=== PATIENT | female | born 1980 | race Caucasian/White ===

== ENCOUNTER 2023-10-06 10:35 | Emergency (ER) | payer BC, SELFPAY ==
[2023-10-06 10:39] VITALS: BP 150/99; PULSE 68; TEMP 36.6; O2SAT 97; BMI 34.0
--- NOTE | 2023-10-06 10:51 | ECG_ITS ---
[facility] Test Date: 2023-10-06 Pat Name: Desiree Ernst Department: Room: - Gender: Female Jive Developer: : 1980 Requested By: Order Number: [id number] Reading MD: CATIE HOLDER Measurements Intervals [place] Rate: 75 P: 270 MA: 148 QRS: 77 QRSD: 92 T: 66 QT: 390 QTc: 419 Interpretive Statements 1220 Rapid atrial rhythm 9140 abnormal rhythm ECG No previous ECG available for comparison Electronically Signed On 10-06-2023 20:10:22 EDT by CATIE HOLDER
[2023-10-06] MEDS: 0.9 % SODIUM CHLORIDE 1,000 ML 1000 ML IV (11:04)
[2023-10-06] MEDS: ONDANSETRON PF 4 MG/2 ML VIAL IV (11:05)
[2023-10-06] MEDS: FAMOTIDINE/PF 20 MG/2 ML VIAL IV (11:05)
[2023-10-06 11:12] VITALS: O2SAT 97
[2023-10-06 11:15] LABS: Basophils Percent Auto 0.4 % (0.2-2.0); Eosinophils Absolute Auto 0.1 10^3/uL (0.0-0.7); Eosinophils Percent Auto 0.8 % (0.9-7.0); Hematocrit 41.6 % (36.0-48.0); Hemoglobin 13.9 g/dL (12.0-16.0); Immature Granulocytes Abs Auto 0.04 10^3/uL (0.00-0.03); Immature Granulocytes Pct Auto 0.5 % (0.0-0.5); Lymphocytes Absolute Auto 1.7 10^3/uL (1.2-3.8); Lymphocytes Percent Auto 22.7 % (20.5-60.0); Mean Corpuscular HGB Conc 33.4 g/dL (29.9-35.2); Mean Corpuscular Hemoglobin 27.5 pg (26.7-34.0); Mean Corpuscular Volume 82.4 fL (81.0-99.0); Mean Platelet Volume 9.3 fL (9.5-13.5); Monocytes Absolute Auto 0.3 10^3/uL (0.3-0.8); Monocytes Percent Auto 4.4 % (1.7-12.0); Neutrophils Absolute Auto 5.4 10^3/uL (1.4-6.5); Neutrophils Percent Auto 71.2 % (43.0-75.0); Platelet Count 222 10^3/uL (150-450); Red Blood Count 5.05 10^6/uL (4.20-5.40); White Blood Count 7.5 10^3/uL (4.0-11.0)
[2023-10-06 11:16] VITALS: BP 135/73; PULSE 78
[2023-10-06 11:17] VITALS: PULSE 78
[2023-10-06 11:30] VITALS: BP 133/70; PULSE 79; O2SAT 96
--- NOTE | 2023-10-06 11:40 | CT_ITS ---
[address] [address] Patient Name: CAILIN DONIS MRN: [id number] date: 1980 Sex: F Assigned Patient Location: ED.MAIN Current Patient Location: ED.MAIN Accession/Order Number: [id number] Exam Date: 10/06/2023 11:34 Report Date: 10/06/2023 12:57 At the request of: MELISSA ASCENCIO Procedure: CT abdomen pelvis wo con EXAMINATION: CT abdomen pelvis wo con HISTORY: kidney stone COMPARISON: No relevant comparison available. TECHNIQUE: Axial, Coronal, and Sagittal images were created without IV contrast. Dose reduction techniques were achieved by using automated exposure control and/or adjustment of mA and/or kV according to patient size and/or use of iterative reconstruction technique. FINDINGS: LUNG BASES: No visible pulmonary or pleural disease. LIVER: No enlargement, atrophy, abnormal density, or significant focal lesion. BILIARY: No dilatation or calcification. PANCREAS: No lesion, fluid collection, ductal dilatation, or atrophy. SPLEEN: No enlargement or focal lesion. ADRENALS: No mass or enlargement. KIDNEYS: Normal right. Asymmetrically enlarged left kidney. Left hydroureteronephrosis extending to a 5 mm stone proximal left ureter axial image #65 BOWEL/MESENTERY: No visible mass, obstruction, or bowel wall thickening. AORTA/VASCULAR: No aneurysm or dissection. RETROPERITONEUM: No mass or adenopathy. LYMPH NODES: No adenopathy. URINARY BLADDER: No visible focal wall thickening, lesion, or calculus. PELVIC ORGANS: No visible mass. Pelvic organs appropriate for patient age. ABDOMINAL WALL: No mass or hernia. BONES: No bony lesion or fracture. OTHER: Negative. CT/CT abdomen pelvis wo con IMPRESSION: 5 mm proximal left ureterolith with mild to moderate associated obstructive uropathy Electronically authenticated by: RUSSELL MARTÍNEZ Date: 10/06/2023 12:57
[2023-10-06 11:49] LABS: Alanine Aminotransferase 24 U/L (14-59); Albumin Globulin Ratio 1.2; Albumin Level 3.7 g/dL (3.4-5.0); Alkaline Phosphatase 77 U/L (46-116); Anion Gap 12.3; Aspartate Amino Transferase 14 U/L (15-37); BUN Creatinine Ratio 12.1; Bilirubin Total 0.6 mg/dL (0.2-1.0); Calcium 9.1 mg/dL (8.5-10.1); Carbon Dioxide 28.5 mmol/L (21.0-32.0); Chloride 101 mmol/L (98-107); Estimated GFR (African America >60 (>=60); Estimated GFR (Non-African Ame >60 (>=60); Globulin 3.1 g/dL; Glucose 126 mg/dL (74-106); Potassium 3.8 mmol/L (3.5-5.1); Sodium 138 mmol/L (136-145); Total Protein 6.8 g/dL (6.4-8.2); Troponin I High Sensitivity <4.0 pg/mL (4.0-51.3)
[2023-10-06 13:00] VITALS: BP 127/80; PULSE 97; O2SAT 99
[2023-10-06 13:30] LABS: Bilirubin Urine NEGATIVE (NEGATIVE); Blood Urine MODERATE (NEGATIVE); Clarity Urine CLEAR (CLEAR); Color Urine LT. YELLOW (YELLOW); Glucose Urine UA NEGATIVE (NEGATIVE); Ketones Urine NEGATIVE (NEGATIVE); Leukocyte Esterase Urine NEGATIVE (NEGATIVE); Nitrite Urine NEGATIVE (NEGATIVE); Protein Urine NEGATIVE (NEG/TRACE); Specific Gravity Urine 1.015 (1.005-1.025); Urobilinogen Urine 0.2 EU/dL (0.2-1.0)
[2023-10-06 13:35] LABS: Urine Microscopic Indicated YES
[2023-10-06 13:42] LABS: Bacteria Urine MODERATE #/HPF (NONE SEEN); Cast Seen? NONE SEEN #/LPF (NONE SEEN); Crystals Seen? None Seen #/HPF (None Seen); Mucus Urine SMALL (NONE SEEN); Squamous Epithelial Cell Urine MANY #/LPF (NONE/RARE); Transitional Epi Cells Urine RARE #/LPF (NONE SEEN); Urine Culture Indicated YES; WBC Urine 0-2 #/HPF (NONE SEEN)
--- NOTE | 2023-10-06 13:53 | ED.ABDPAIN1 ---
HPI - Abdominal Pain General Chief Complaint: Abdominal Pain Stated Complaint: KIDNEY STONE VOMITING Time Seen by Provider: 10/06/23 10:47 Source: patient Mode of arrival: walk-in Limitations: no limitations History of Present Illness HPI narrative: The patient is coming to the ER with nausea and vomiting for the last 24 hours, she was diagnosed with a kidney stone on the left side almost 5 days ago and another facility where she was admitted for 24 hours and then discharged According to the patient she did not have a clear plan from her kidney stone and that was one of the reason that brought her to the ER and that seems to the nausea and the vomiting There was no more flank pain, there is no burning with urination no fever no chills Related Data Home Medications ?Medication ?Instructions ?Recorded ?Confirmed alprazolam 0.5 mg tablet 0.5 mg PO BID PRN anxiety 10/06/23 10/06/23 buprenorphine 8 mg-naloxone 2 mg 2 film sublingual DAILY 10/06/23 10/06/23 sublingual film buspirone 10 mg tablet 10 mg PO TID 10/06/23 10/06/23 dextroamphetamine-amphetamine 30 30 mg PO BID 10/06/23 10/06/23 mg tablet levothyroxine 125 mcg tablet 125 mcg PO DAILY 10/06/23 10/06/23 pregabalin 75 mg capsule 75 mg PO Q12H 10/06/23 10/06/23 tamsulosin 0.4 mg capsule 0.4 mg PO BID 10/06/23 10/06/23 Previous Rx's ?Medication ?Instructions ?Recorded cephalexin 500 mg capsule 500 mg PO Q8H 7 days #21 caps 10/06/23 famotidine 20 mg tablet (Pepcid) 20 mg PO BID #20 tabs 10/06/23 ondansetron 4 mg disintegrating 4 mg PO Q8H PRN nausea and 10/06/23 tablet vomiting #10 tabs Allergies Allergy/AdvReac Type Severity Reaction Status Date / Time No Known Drug Allergies Allergy Verified 10/06/23 10:39 Review of Systems ROS Status of ROS 10 or more systems reviewed and unremarkable except as noted in history and below Exam Narrative Exam Narrative: Nurses notes and vital signs reviewed and patient is not hypoxic. General: Well-appearing and in no apparent distress. Skin: Warm, dry, no pallor noted. No rash. Head: Normocephalic, atraumatic. Neck: Supple, non-tender. Eye: Pupils are equal, round and EOMI. No scleral icterus. Ears, Nose, Mouth, and Throat: TM are clear, no nasal mucosal hypertrophy. Oral mucosa is moist, no posterior oropharynx erythema, uvula is mid-line Cardiovascular: Regular Rate and Rhythm without murmur, gallop or rub. Respiratory: No accessory muscle use or respiratory distress. Lungs are clear to auscultation, no wheezing, rales or rhonchi Chest Wall: no tenderness Back: No midline thoracic or lumbar vertebral tenderness. No CVA tenderness Musculoskeletal: normal ROM, no calf or popliteal tenderness, no lower extremity edema/swelling GI: Abdomen is soft, non-distended. Normal bowel sounds. No masses appreciated. Mild epigastric discomfort. no rebound, guarding, or rigidity noted. Neurological: A&O x4. No cranial nerve dysfunction observed. No truncal ataxia. Moves all extremities. Sensation intact. Psychiatric: Cooperative and interactive. Normal mood and affect. Constitutional Vital Signs, click to edit/add: Last Vital Signs Temp 97.9 F 10/06/23 10:39 Pulse 97 H 10/06/23 13:00 Resp 18 10/06/23 13:00 BP 127/80 10/06/23 13:00 Pulse Ox 99 10/06/23 13:00 Course Vital Signs Vital signs: Vital Signs Temperature 97.9 F 10/06/23 10:39 Pulse Rate 68 10/06/23 10:39 Respiratory Rate 20 10/06/23 10:39 Blood Pressure 150/99 H 10/06/23 10:39 Pulse Oximetry 97 10/06/23 10:39 Temperature 97.9 F 10/06/23 10:39 Pulse Rate 97 H 10/06/23 13:00 Respiratory Rate 18 10/06/23 13:00 Blood Pressure 127/80 10/06/23 13:00 Pulse Oximetry 99 10/06/23 13:00 MDM - Abdominal Pain MDM Narrative Medical decision making narrative: The patient presenting to us with a epigastric discomfort associate with nausea and vomiting showed he had a diagnosis of kidney stone 5 days And the workup from the other facility showed that she have a left-sided kidney stone on our repeated CAT scan today the patient still have a 5 mm kidney stone on the left side with some obstructive features] The patient CBC and chemistry showed no acute pathology but the urine is positive for bacteria and should be covered with Keflex Patient provided with Pepcid and Zofran in the ER for possible gastritis she also was started on Keflex and to continue hydration she was referred to the urologist on-call Dr. Hunt The patient was instructed about the symptoms that we will bring her back to the ER The patient is to follow up with primary care physician in next 2-3 days or to return to the emergency department should any of the signs or symptoms worsen or new symptoms develop. The patient agrees with the following Diagnosis and Treatment plan and the patient will be discharged home. Lab Data Labs: Lab Results 10/06/23 10/06/23 Range/Units 11:03 13:24 WBC 7.5 (4.0-11.0) 10^3/uL RBC 5.05 (4.20-5.40) 10^6/uL Hgb 13.9 (12.0-16.0) g/dL Hct 41.6 (36.0-48.0) % MCV 82.4 (81.0-99.0) fL MCH 27.5 (26.7-34.0) pg MCHC 33.4 (29.9-35.2) g/dL RDW 13.0 (11.0-15.0) % Plt Count 222 (150-450) 10^3/uL MPV 9.3 L (9.5-13.5) fL Neut % (Auto) 71.2 (43.0-75.0) % Lymph % (Auto) 22.7 (20.5-60.0) % Hitchcock % (Auto) 4.4 (1.7-12.0) % Eos % (Auto) 0.8 L (0.9-7.0) % Baso % (Auto) 0.4 (0.2-2.0) % Neut # (Auto) 5.4 (1.4-6.5) 10^3/uL Lymph # (Auto) 1.7 (1.2-3.8) 10^3/uL Hitchcock # (Auto) 0.3 (0.3-0.8) 10^3/uL Eos # (Auto) 0.1 (0.0-0.7) 10^3/uL Baso # (Auto) 0.0 (0.0-0.1) 10^3/uL Abs Immat Gran (auto) 0.04 H (0.00-0.03) 10^3/uL Imm/Tot Granulo (auto) 0.5 (0.0-0.5) % Sodium 138 (136-145) mmol/L Potassium 3.8 (3.5-5.1) mmol/L Chloride 101 (98-107) mmol/L Carbon Dioxide 28.5 (21.0-32.0) mmol/L Anion Gap 12.3 BUN 8.0 (7.0-18.0) mg/dL Creatinine 0.66 (0.55-1.02) mg/dL Est GFR ( Amer) >60 (>=60) Est GFR (Non-Af Amer) >60 (>=60) BUN/Creatinine Ratio 12.1 Glucose 126 H (74-106) mg/dL Calcium 9.1 (8.5-10.1) mg/dL Total Bilirubin 0.6 (0.2-1.0) mg/dL AST 14 L (15-37) U/L ALT 24 (14-59) U/L Alkaline Phosphatase 77 (46-116) U/L Troponin I High Sens <4.0 L (4.0-51.3) pg/mL Total Protein 6.8 (6.4-8.2) g/dL Albumin 3.7 (3.4-5.0) g/dL Globulin 3.1 g/dL Albumin/Globulin Ratio 1.2 Lipase 50.0 (16.0-77.0) U/L Urine Color Lt. yellow (YELLOW) Urine Clarity Clear (CLEAR) Urine pH 7.0 (5.0-9.0) Ur Specific [place] 1.015 (1.005-1.025) Urine Protein Negative (NEG/TRACE) mg/dL Urine Glucose (UA) Negative (NEGATIVE) mg/dL Urine Ketones Negative (NEGATIVE) mg/dL Urine Occult Blood Moderate A (NEGATIVE) Urine Nitrite Negative (NEGATIVE) Urine Bilirubin Negative (NEGATIVE) Urine Urobilinogen 0.2 (0.2-1.0) EU/dL Ur Leukocyte Esterase Negative (NEGATIVE) Urine RBC 10-20 A (0-2) #/HPF Urine WBC 0-2 A (NONE SEEN) #/HPF Ur Squamous Epith Cells Many A (NONE/RARE) #/LPF Ur Transition Epith Cell Rare A (NONE SEEN) #/LPF Urine Crystals None seen (None Seen) #/HPF Urine Bacteria Moderate A (NONE SEEN) #/HPF Urine Casts None seen (NONE SEEN) #/LPF Urine Mucus Small A (NONE SEEN) Ur Culture Indicated? Yes Discharge Plan Discharge Stand Alone Forms: Work/School Release, Portal Instructions Chief Complaint: Abdominal Pain Clinical Impression: Gastritis, Kidney stone Patient Disposition: Home, Self-Care Time of Disposition Decision: 13:42 Prescriptions / Home Meds: New famotidine [Pepcid] 20 mg tablet 20 mg PO BID Qty: 20 0RF ondansetron 4 mg tablet,disintegrating 4 mg PO Q8H PRN (Reason: nausea and vomiting) Qty: 10 0RF cephalexin 500 mg capsule 500 mg PO Q8H 7 Days Qty: 21 0RF No Action buprenorphine-naloxone 8-2 mg film 2 film sublingual DAILY buspirone 10 mg tablet 10 mg PO TID dextroamphetamine-amphetamine 30 mg tablet 30 mg PO BID levothyroxine 125 mcg tablet 125 mcg PO DAILY tamsulosin 0.4 mg capsule 0.4 mg PO BID pregabalin 75 mg capsule 75 mg PO Q12H alprazolam 0.5 mg tablet 0.5 mg PO BID PRN (Reason: anxiety) Print Language: Albanian Instructions: Gastritis (DC), Kidney Stones (ED), Hydronephrosis (ED) Referrals: ABBY ALCAZAR [Primary Care Provider] - 1 week Nemo Hunt MD [Physician] - As soon as possible
== END 2023-10-06 13:53 | disposition home or self-care (01) ==
PROVIDERS: Emergency Provider Emergency Medicine; PCP Family Medicine
DX: N20.0 Calculus of kidney (principal); K29.70 Gastritis, unspecified, without bleeding
CPT/HCPCS: 36415; 74176; 80053; 81001; 83690; 84484; 85025; 87086; 93005; 96361; 96374; 96375; 99285; J2405